=== PATIENT | male | born 1940 | race Caucasian/White ===

== ENCOUNTER 2016-05-15 16:44 | Inpatient (IN) | payer OTHER ==
--- NOTE | 2016-05-15 17:44 | ED EKG INTERP ---
EKG Interpretation - EKG Time of EKG reading by physician:: 17:11 EKG Read and Signed by:: Sofía Flores EKG Interpretation (*Must complete 3 of following elements*): Abnormal (ST and T wave abnormality consider r2qbuwjgn ischemia) Rate: 102 Rhythm: wewa [place]: normal QRS: normal Attestation - Scribe Verification/Attestation Scribe:: Tari Prado Acting as Scribe for:: Sofía Flores Scribe documention review:: This chart was documented by a scribe and accurately reflects the service the provider performed and the decisions made by the provider. Physician Attestation - Physician Attestation I, the provider, attest to the following statement:: Sofía Flores Physician documentation Attestation:: This documentation recorded by the scribe accurately reflects the service I personally performed and the decisions made by me.
[2016-05-15] MEDS ORDERED: M.V.I.-12 10 ML, FOLIC ACID 1 MG, MAGNESIUM SULFATE 1 GM, THIAMINE 100 MG in NS 1,000 ML IV ONE (18:27)
[2016-05-15] MEDS ORDERED: DUONEB (A & A) INH ONE (18:27)
--- NOTE | 2016-05-15 18:33 | PROVIDER DOCUMENTATION ---
HPI-General Adult - General Chief Complaint: Weakness Stated Complaint: Lung CA, Not eating or drinking,Weak Time Seen by Provider: 05/15/16 18:16 Source: patient, family Allergies/Adverse Reactions: Patient Allergies Allergy/AdvReac Type Severity Reaction Status Date / Time codeine Allergy Severe NAUSEA/VOMI Verified 05/15/16 18:36 TING hydrocodone bitartrate * Allergy Severe NAUSEA/VOMI Verified 05/15/16 18:36 [From Lortab] TING Home Medications: Home Medication List Medication Instructions Recorded Confirmed Last Taken Type Levothyroxine [Synthroid] 15 mcg PO DAILY 04/14/13 05/15/16 05/05/13 History 100 Cyproheptadine [Periactin] 4 mg PO TID 05/15/16 05/15/16 Unknown History - History of Present Illness -Gen Adult Nature of Presenting Problems: 75 y/o M presents to the ED with weakness and loss of appetite for 2 weeks. Pt is a Lung cancer pt with a port. Family states the port has not been accessed in 6 months. Pt is bed ridden and states his port appears to be out. Location of Pain/Injury: reports: lower body, generalized Quality of Pain: reports: aching Severity: reports: severe Onset/Duration: reports: other (2 weeks) Timing: reports: still present, getting worse Similar Symptoms Previously?: No Recently seen or treated by another doctor?: Yes Review of Systems - Adult - REVIEW OF SYSTEMS - ADULT Constitutional: denies: chills, fever Eyes: reports: no symptoms reported Ears, Nose, Mouth & Throat: reports: no symptoms reported Cardiovascular: reports: no symptoms reported Respiratory: reports: shortness of breath. denies: cough, wheezing Gastrointestinal: denies: abdominal pain, nausea, vomiting Genitourinary: reports: no symptoms reported Musculoskeletal: reports: muscle weakness Integumentary: reports: no symptoms reported Neurological: reports: no symptoms reported Psychiatric: reports: no symptoms reported Endocrine: reports: no symptoms reported Hematologic/Lymphatic: reports: no symptoms reported Allergic/Immunologic: reports: no symptoms reported All Other Systems: Reviewed and Negative Past History - Adult - PAST MEDICAL HISTORY-ADULT Review of Records: reports: Old Records Reviewed, Nursing Assessment Review, Medications Reviewed Cardiovascular: reports: HTN Musculoskeletal: reports: cancer (lung ) Endocrine/Immune: reports: thyroid disorder - IMMUNIZATION STATUS Childhood Immunizations: See Nurse Assessment Flu Vaccine: See Nurse Assessment Physical Exam-General - CONSTITUTIONAL General Appearance: appears well (Ill in apperance), alert, thin - EYES Eyes: PERRL/EOMI, pink conjunctivae - HEAD, EARS, NOSE, MOUTH & THROAT HENMT: negative: moist mucous membranes (Dry membrance), normal ENT inspection - NECK Neck: full range of motion, supple - RESPIRATORY Respiratory: decreased breath sounds (in all lung jeffrey). negative: normal breath sounds - CARDIOVASCULAR Cardiovascular: normal peripheral pulses, tachycardia. negative: regular rate, rhythm - GASTROINTESTINAL (ABDOMEN) Abdominal Exam: soft, no organomegaly, no pulsatile mass - MUSCULOSKELETAL Back Exam: no CVA tenderness, no vertebral tenderness Extremity: other (No strenght in lower extremities). negative: normal range of motion, normal inspection - SKIN Integumentary: normal color, warm/dry. negative: normal turgor - NEUROLOGIC Neurologic: grossly normal, no motor/sensory deficits - PSYCHIATRIC Psych/Mental Status: normal mood/affect, normal thought content, normal thought process, oriented x 3 Progress - PLAN OF CARE/RESULTS Progress/Plan/Lab Results: Orders Category Date Time Status Saline Loc NOW Care 05/15/16 18:16 Active CHEST-PORTABLE [RAD] Stat Exams 05/15/16 18:16 Taken BLOOD CULTURE [BLDCUL] Stat Lab 05/15/16 18:30 Results CBC WITH DIFF [HEME] Stat Lab 05/15/16 17:47 Completed COMPREHENSIVE METABOLIC PANEL [CHEM] Stat Lab 05/15/16 17:47 Completed LACTATE, PLASMA [CHEM] Stat Lab 05/15/16 18:35 Ordered PRO B-NATRIURETIC PEPTIDE Stat Lab 05/15/16 17:47 Completed Albuterol 2.5MG/Ipratrop 0.5MG [Duoneb (A & A)] Med 05/15/16 18:27 Discontinued 3 ml INH NOW ONE Mvi [M.v.i.-12] 10 ml Med 05/15/16 18:27 Active Folic Acid 1 mg Magnesium Sulfate 1 gm Thiamine 100 mg 0.9% Sodium Chloride Inj [Ns] 1,000 ml IV NOW Aerosol Treatments Routine Oth 05/15/16 18:28 Completed Aerosol Treatments Stat Oth 05/15/16 18:28 Completed Pulse Oximetry Stat Oth 05/15/16 18:16 Completed Vital Signs Temp Pulse Resp BP Pulse Ox 03/08/17 18:43 96 H 18 05/15/16 16:44 97.8 F 106 H 13 156/69 97 codeine Allergy (Severe, Verified 05/15/16 18:36) NAUSEA/VOMITING hydrocodone bitartrate * [From Lortab] Allergy (Severe, Verified 05/15/16 18:36) NAUSEA/VOMITING Levothyroxine [Synthroid] 15 mcg PO DAILY 04/14/13 Cyproheptadine [Periactin] 4 mg PO TID 05/15/16 Laboratory 05/15/16 05/15/16 05/15/16 17:47 17:47 17:47 WBC 9.37 RBC 3.08 L Hgb 8.0 L Hct 24.7 L MCV 80.2 L MCH 26.0 L MCHC 32.4 L RDW Std Deviation 16.0 H Plt Count 391 MPV 9.0 Immature Gran % (Auto) 0.3 Neut % (Auto) 89.1 H Lymph % (Auto) 6.7 L Pike % (Auto) 3.7 Eos % (Auto) 0.0 Baso % (Auto) 0.2 Immature Gran # (Auto) 0.03 Neut # (Auto) 8.34 H Lymph # (Auto) 0.63 L Pike # (Auto) 0.35 Eos # (Auto) 0.00 Baso # (Auto) 0.02 Sodium 126 L Potassium 3.2 L Chloride 87 L Carbon Dioxide 22 L Anion Gap 17 BUN 8 Creatinine 0.5 L Estimated GFR/1.73 m2 > 60 BUN/Creatinine Ratio 16 Glucose 97 Calculated Osmolality 252 Calcium 8.0 L Total Bilirubin 0.69 AST 11 ALT 12 Alkaline Phosphatase 212 H Fvz-C-Svnctyiyvew Pept 2036 H Total Protein 5.9 L Albumin 2.6 L Globulin 3.3 Albumin/Globulin Ratio 0.8 - XRAY 1 XRAY Study: Chest Impression: Abnormal (COPD changes, Rt lung mets) XRAY Interpretation: Read by Dr Guthrie - CONSULTS/PCP/HOSPITALIST Notification #1 *Consult/PCP/Hospitalist*: Dr Rodriguez (Hospitalist) Time Discussed: 19:21 Reason/Comments: Admission Consult Disposition: Admit (Accepts) Departure - Departure Time of Disposition Order: 19:20 DIAGNOSIS: Weakness, Hyponatremia Lung cancer Qualifiers: Laterality: right Lung location: unspecified part of lung Qualified Code(s): C34.91 - Malignant neoplasm of unspecified part of right bronchus or lung Disposition: HOME 01 Certified Medical Emergency: Emergent Condition: Stable Referrals: Cecilia Butts MD [Primary Care Provider] - Attestation - Scribe Verification/Attestation Scribe:: Gold Alonso Acting as Scribe for:: Tai Guthrie Scribe documention review:: This chart was documented by a scribe and accurately reflects the service the provider performed and the decisions made by the provider.
[2016-05-15 18:38] LABS: BASO% 0.2 % (0.0-0.8); HEMATOCRIT 24.7 % (42.0-52.0); IMM GRAN# 0.03 X1000 (0.0-0.04); IMM GRAN% 0.3 % (0.0-0.5); LYMPH# 0.63 X1000 (1.2-3.4); LYMPH% 6.7 % (20.5-51.1); MANUAL DIFF NEEDED? NO; MCHC 32.4 g/dL (33-37); MCV 80.2 FL (81-99); MONO# 0.35 X1000 (0.11-0.59); MONO% 3.7 % (1.7-9.3); NEUT% 89.1 % (42.2-75.2); PLT 391 X1000 (130-400); RBC 3.08 XMIL (4.7-6.1)
[2016-05-15 19:06] LABS: AGAP 17; ALBUMIN 2.6 g/dL (3.5-5.0); ALKALINE PHOSPHATASE 212 U/L (32-122); BUN 8 mg/dL (8-22); CHLORIDE 87 mmol/L (98-107); COSMO 252; GOT 11 U/L (10-34); GPT 12 U/L (10-44); POTASSIUM 3.2 mmol/L (3.5-5.1); SODIUM 126 mmol/L (136-145); TCO2 22 mmol/L (25-35); TOTAL BILIRUBIN 0.69 mg/dL (0.20-1.00); TOTAL PROTEIN 5.9 g/dL (6.3-8.3)
[2016-05-15] MEDS ORDERED: ZOFRAN IV PRN (19:39)
[2016-05-15] MEDS ORDERED: MORPHINE IV PRN (19:39)
[2016-05-15] MEDS ORDERED: ROCEPHIN 1 GM/NS 50 ML IV ONE (19:41)
[2016-05-15] MEDS: DUONEB (A & A) INH SCH (23:43)
[2016-05-15] MEDS: NS 1,000 ML IV SCH (23:51)
--- NOTE | 2016-05-16 00:55 | HISTORY AND PHYSICAL ---
CHIEF COMPLAINT: Weakness and not being able to get up and around. HISTORY OF PRESENT ILLNESS: He came into the ER for evaluation. He has had some nausea, vomiting, poor p.o. intake for the last several days. Workup in the ER revealed normal vitals. However, his hemoglobin and hematocrit have dropped significantly, 8 and 24. Chemistries: Sodium is down to 126 although he has been hypernatremic, potassium 3.2. He was admitted for further management. There was also some concern over early urinary tract infection. Patient denies any eddie abdominal pain. PAST MEDICAL HISTORY: 1. 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 2. Hypertension. 3. Dyslipidemia. 4. Peripheral vascular disease. 5. Hypothyroidism. 6. GERD. PAST SURGICAL HISTORY: Thyroidectomy. SOCIAL HISTORY: No tobacco or ethanol. FAMILY HISTORY: Reviewed and noncontributory. ALLERGIES: No known drug allergies. MEDICATIONS: He is on Synthroid and Periactin alone. REVIEW OF SYSTEMS: Otherwise negative. PHYSICAL EXAMINATION: VITAL SIGNS: Blood pressure 156/69, heart rate of 106, respiratory rate 13, temperature 97.8 degrees. GENERAL: A thin male, cachectic, in no acute distress. He has some mild discomfort in his abdomen. HEENT: Pupils equal, round, reactive to light. Extraocular movements were intact. NECK: Supple. CARDIOVASCULAR: Regular rate and rhythm. No murmurs, gallops, or rubs. PULMONARY: Bilateral breath sounds. Clear to auscultation. GASTROINTESTINAL: Soft, nontender, nondistended. Bowel sounds are positive. LABORATORY DATA: Sodium 126, potassium 3.2. Hemoglobin and hematocrit were 8 and 24 which was dropped from in February. It was 11 and 31 with a low MCV. Urine showed too numerous to count white blood cells, less than 10 epithelial cells, 4+ bacteria, no nitrites. PROBLEM LIST: 1. Generalized weakness, failure to thrive. Possible UTI versus metabolic encephalopathy; We will continue hydration and follow closely. 2. Hyponatremia, hypokalemia. We will continue to monitor and supplement accordingly. 3. Urinary tract infection. Continue empiric antibiotics and follow up on urine culture. 4. Microcytic anemia. We will rule out GI bleed and follow iron levels. Continue to follow very closely. [facility]
[2016-05-16] MEDS: DUONEB (A & A) INH SCH ×6 (03:53→23:07)
[2016-05-16] MEDS ORDERED: NS 500 ML IV ONE (04:36)
[2016-05-16] MEDS ORDERED: LOPRESSOR IV ONE (04:36)
--- NOTE | 2016-05-16 05:15 | EKG Report ---
Test Performed on : 05/16/2016 04:43:40 AM Test Reason : Tachycardia Blood Pressure : / mmHG Vent. Rate : 132 BPM Atrial Rate : 132 BPM P-R Int : 176 ms QRS Dur : 076 ms QT Int : 378 ms P-R-T Axes : 056 011 097 degrees QTc Int : [address] & T wave abnormality, consider lateral ischemia Abnormal ECG When compared with ECG of 15-MAY-2016 17:11, (Unconfirmed) ST now depressed in Lateral leads Inverted T waves have replaced nonspecific T wave abnormality in Lateral leads Confirmed by Juany VELASCO, Aveilno Hodges ([id number]) on 05/16/2016 9:31:25 AM
--- NOTE | 2016-05-16 05:39 | EKG Report ---
Test Performed on : 05/15/2016 5:11:33 PM Test Reason : No Order in [employer] Blood Pressure : / mmHG Vent. Rate : 102 BPM Atrial Rate : 102 BPM P-R Int : 164 ms QRS Dur : 078 ms QT Int : 348 ms P-R-T Axes : 023 019 061 degrees QTc Int : [address] & T wave abnormality, consider inferior ischemia Abnormal ECG When compared with ECG of 07-MAY-2013 07:48, Inverted T waves have replaced nonspecific T wave abnormality in Anterior leads Unconfirmed Result
[2016-05-16] MEDS: PRILOSEC PO SCH (06:42)
[2016-05-16 07:21] LABS: HEMATOCRIT 22.9 % (42.0-52.0); HEMOGLOBIN 7.4 g/dL (14.0-18.0); MCH 26.5 PG (27-31); MCHC 32.3 g/dL (33-37); MCV 82.1 FL (81-99); MPV 8.8 FL (7.4-10.4); RBC 2.79 XMIL (4.7-6.1)
--- NOTE | 2016-05-16 07:47 | Diag Imaging Result Document ---
PROCEDURE NAME: CHEST-PORTABLE - 05/15/2016 PORTABLE CHEST X-RAY: COMPARISON: 02/14/2016. FINDINGS: Stable right chest port in good position. Stable scarring in the right mid lung. Heart size and pulmonary vascularity is normal. No definite infiltrates. IMPRESSION: Pulmonary scarring but no acute disease.
[2016-05-16 08:00] LABS: AGAP 16; BUN 9 mg/dL (8-22); CALCIUM 7.8 mg/dL (8.8-10.2); CHLORIDE 92 mmol/L (98-107); COSMO 257; IRON SATURATION 13 %; MAGNESIUM 1.9 mg/dL (1.5-2.7); SODIUM 129 mmol/L (136-145); TCO2 21 mmol/L (25-35); TIBC 94 ug/dL; TOTAL IRON 12 ug/dL (53-167); UNBOUND IRON 82 ug/dL (112-346)
[2016-05-16 08:01] LABS: POTASSIUM 2.5 mmol/L (3.5-5.1)
[2016-05-16] MEDS ORDERED: SYNTHROID PO SCH (09:00)
[2016-05-16] MEDS: TYLENOL PO PRN (10:16)
[2016-05-16] MEDS: PERIACTIN PO SCH ×3 (11:35→17:14)
[2016-05-16] MEDS: POTASSIUM CHLORIDE 20 MEQ/SWI 100 ML IV SCH ×4 (11:36→20:50)
[2016-05-16] MEDS: NS 1,000 ML IV SCH ×2 (14:02→18:09)
[2016-05-16 16:34] LABS: AGAP 15; BUN 10 mg/dL (8-22); CALCIUM 7.5 mg/dL (8.8-10.2); CHLORIDE 94 mmol/L (98-107); COSMO 259; POTASSIUM 2.9 mmol/L (3.5-5.1); SODIUM 129 mmol/L (136-145); TCO2 20 mmol/L (25-35)
[2016-05-16] MEDS ORDERED: ROCEPHIN 1 GM/NS 50 ML IV SCH (21:00)
--- NOTE | 2016-05-16 22:54 | CONSULTATION ---
DATE OF CONSULTATION: 05/16/2016 REASON FOR CONSULTATION: Malfunctioning [id number]-Hmgefhht. HISTORY OF PRESENT ILLNESS: This is a 75-year-old male with metastatic squamous cell lung cancer who has an indwelling Port-A-Cath for many years. He was admitted recently with complaints of weakness, poor p.o. intake, nausea and vomiting. He has been found to be quite anemic and his port has become completely exposed with skin breakdown over it. PAST MEDICAL HISTORY: Metastatic squamous cell cancer of the lung. Hypertension. Peripheral vascular disease. Dyslipidemia. Hypothyroidism. GERD. PAST SURGICAL HISTORY: Thyroidectomy. Port placement. SOCIAL HISTORY: He denies tobacco or alcohol. FAMILY HISTORY: Reviewed and noncontributory. ALLERGIES: No known drug allergies. HOME MEDICATIONS: Synthroid. Periactin. REVIEW OF SYSTEMS: Ten systems reviewed and negative except as noted above. PHYSICAL EXAMINATION: Vital Signs: Temperature 97.3 degrees, pulse 85, respirations 19, blood pressure 96/48. General: Elderly, chronically ill-appearing male who is quite frail appearing. He is alert. He follows commands. He seems to have some confusion and forgetfulness. General: He is an elderly frail-appearing male in no acute distress. He is somewhat forgetful or confused. CARDIOVASCULAR: Regular rate and rhythm. Respiratory: Bilateral equal breath sounds. Gastrointestinal: Soft, nontender. No obvious organomegaly. Skin: He has a right chest Port- A-Catheter and the port itself is completely exposed. The skin is broken down around the port. There does not appear to be any surrounding erythema or drainage around it. LABORATORY: White blood cell count 15,000, hemoglobin 7.4, hematocrit 22.9, platelet count 326,000. Sodium 129, potassium 2.9, chloride 94, CO2 20, BUN 10, creatinine 0.5. ASSESSMENT AND PLAN: A 75-year-old male with metastatic lung cancer and now has an exposed port. Due to significant risk of life-threatening infection, this Kfle-X-Qiymnizn needs to be removed. We will plan to do this in the operating room tomorrow I discussed the risks, benefits, and alternatives with him. He understands and agrees to proceed.
[2016-05-17] MEDS: DUONEB (A & A) INH SCH ×6 (02:53→23:21)
[2016-05-17 07:30] LABS: BASO% 0.1 % (0.0-0.8); EOS# 0.04 X1000 (0.0-0.7); EOS% 0.4 % (0.0-10.0); HEMATOCRIT 21.9 % (42.0-52.0); IMM GRAN# 0.04 X1000 (0.0-0.04); IMM GRAN% 0.4 % (0.0-0.5); LYMPH# 0.82 X1000 (1.2-3.4); LYMPH% 7.6 % (20.5-51.1); MANUAL DIFF NEEDED? YES; MCV 81.4 FL (81-99); MONO# 0.32 X1000 (0.11-0.59); MPV 8.8 FL (7.4-10.4); NEUT% 88.5 % (42.2-75.2); PLT 286 X1000 (130-400); RBC 2.69 XMIL (4.7-6.1)
[2016-05-17 08:15] LABS: AGAP 10; BUN 10 mg/dL (8-22); CALCIUM 7.6 mg/dL (8.8-10.2); CHLORIDE 98 mmol/L (98-107); COSMO 262; MAGNESIUM 2.2 mg/dL (1.5-2.7); POTASSIUM 3.7 mmol/L (3.5-5.1); SODIUM 132 mmol/L (136-145); TCO2 24 mmol/L (25-35)
[2016-05-17 08:21] LABS: BANDS 1 % (0-1); LYMPHS 4 % (21-51); MONO 2 % (1-9)
[2016-05-17] MEDS: PRILOSEC PO SCH (09:21)
[2016-05-17] MEDS: PERIACTIN PO SCH ×3 (09:21→16:45)
[2016-05-17] MEDS: NS 1,000 ML IV SCH ×2 (09:30→16:45)
[2016-05-17] MEDS ORDERED: MARCAINE 0.25% PF/EPI 1:200,000 ONE (10:19)
[2016-05-17] MEDS ORDERED: XYLOCAINE 1%/EPI 1:100,000 ONE (10:35)
[2016-05-17] MEDS ORDERED: DIPRIVAN 1% ONE (11:27)
[2016-05-17] MEDS ORDERED: LR 1,000 ML ONE (11:56)
[2016-05-17] MEDS ORDERED: EXTENSION SET 32 IN 4522 ONE (11:57)
[2016-05-17] MEDS ORDERED: ANESTHESIA PB SET 88 IN 5742 ONE (11:57)
[2016-05-17] MEDS: TYLENOL PO PRN (12:46)
--- NOTE | 2016-05-17 14:45 | OPERATIVE NOTE ---
PROCEDURE DATE : 05/17/2016 PREOPERATIVE DIAGNOSES: 1. Metastatic squamous cell cancer of the lung. 2. Port malfunction. POSTOPERATIVE DIAGNOSES: 1. Metastatic squamous cell cancer of the lung. 2. Port malfunction. PROCEDURE: Excision of port. SURGEON: Jerry Martinez MD ANESTHESIA: Local with monitored anesthesia care. ESTIMATED BLOOD LOSS: Two milliliters. COMPLICATIONS: None apparent. TECHNIQUE: The patient was brought to the operating room and placed supine on the table. He was prepped and draped in usual sterile fashion. One percent lidocaine with epinephrine was used to anesthetize the skin and subcutaneous tissues around the port. An incision was made around the port with a 15 blade including a rim of skin on the edges of the exposed port. The port was then excised from its fibrous capsule sharply with the scissors, removing the old Prolene sutures with it. After the port and catheter were completely removed, the catheter track was then closed in a figure-of-8 3-0 Vicryl. The skin was closed with interrupted subcuticular 3-0 Vicryl. Steri- Strips and an island dressing were placed. There were no apparent complications.
--- NOTE | 2016-05-17 14:47 | PALLIATIVE CARE CONSULTATION ---
DATE: 05/17/2016 REQUESTING PHYSICIANS: Dr. Butts REASON FOR CONSULTATION: Goals of care. HISTORY OF PRESENT ILLNESS: This is a 75-year-old male with a past medical history of metastatic squamous cell cancer of the lung, hypertension, dyslipidemia, peripheral vascular disease, hypothyroidism and gastroesophageal reflux disease. He was most recently admitted on 05/15/2016 after presenting to the ER with complaints of nausea, vomiting, poor p.o. intake and weakness. Mr. Wagner's and granddaughter are at the bedside and state that he has become progressively weak over the last 2 months. They state that in January 2016 Mr. Wagner was able to ambulate with assistance and now he is completely bedbound. Mr. Wagner states that he has had a 40-pound weight loss over the last 6 months. He states that he does not have an appetite. The family states that he has not had anything to eat in the last 4 days. It is of note that Dr. Harvey was following this patient for his lung cancer however Ms. Wagner states that Mr. Wagner stopped attending those appointments back in February 2016. The palliative care team has been consulted to assist with goals of care. REVIEW OF SYSTEMS: Twelve-point review of system has been conducted and otherwise negative except those mentioned in the HPI. PAST MEDICAL HISTORY: See HPI. PAST SURGICAL HISTORY: 1. Thyroidectomy. 2. Port placement. SOCIAL HISTORY: Prior to this admission he lived at home with his . He has 1 son who is estranged and 2 grandchildren who are very attentive to his care. FAMILY HISTORY: None pertinent. PHYSICAL EXAM: General: This is a cachectic elderly male who does not appear to be in any acute distress. HEENT: Atraumatic, normocephalic. Neck: Trachea is midline. Cardiovascular: Regular rate and rhythm. Pulmonary: Lung sounds are clear. Respirations are nonlabored. Abdomen: Soft. Bowel sounds are active. Extremities: Pulses are palpable. Skin: Warm and dry. IMPRESSION: This is a 75-year-old male with a past medical history as listed above in the history of present illness. I met with Mr. Wagner, his and granddaughter discussed his goals of care. Mr. Wagner's family states they would like to take him home to the granddaughter's house with hospice services. The patient states that he is agreeable to hospice services and that he feels like he does not have much longer left to live. However he is not willing to live with his family as he feels like he would be a burden to them. The is interested in long-term care placement, specifically at a [facility]. She states that she has spoken with a in store marketing representative of the [facility] but has not been told if a bed is available at this time. Currently Mr. Wagner does not complain of dyspnea, pain, nausea, anxiety or depression. We spoke about advanced directive and power of admitted attorneys. Mr. Wagner is a DNR level 1. He does not have a power of admitted attorneys but states that his would make any decisions if he was unable to make those for himself. The family had questions regarding home hospice services and those questions were answered. I do believe plan is for Mr. Wagner to go down to have his port removed today. The palliative care team will continue to follow until discharge. It does appear that Mr. Wagner's palliative performance scale is 20%. Thank you for this consultation. Dictated by ELIZABETH Beasley for Arian Bernal MD
[2016-05-17] MEDS ORDERED: SYNTHROID PO ONE (14:55)
[2016-05-18] MEDS: NS 1,000 ML IV SCH ×3 (02:59→23:07)
[2016-05-18] MEDS: DUONEB (A & A) INH SCH ×6 (03:39→23:33)
[2016-05-18] MEDS: SYNTHROID PO SCH (06:09)
[2016-05-18] MEDS: PRILOSEC PO SCH (06:09)
[2016-05-18 07:12] LABS: MANUAL DIFF NEEDED? NO
[2016-05-18 07:37] LABS: BASO% 0.3 % (0.0-0.8); EOS# 0.04 X1000 (0.0-0.7); EOS% 0.5 % (0.0-10.0); HEMATOCRIT 20.8 % (42.0-52.0); HEMOGLOBIN 6.5 g/dL (14.0-18.0); IMM GRAN# 0.03 X1000 (0.0-0.04); IMM GRAN% 0.4 % (0.0-0.5); LYMPH# 1.05 X1000 (1.2-3.4); LYMPH% 13.3 % (20.5-51.1); MCHC 31.3 g/dL (33-37); MCV 83.2 FL (81-99); MONO# 0.36 X1000 (0.11-0.59); MONO% 4.6 % (1.7-9.3); MPV 9.4 FL (7.4-10.4); NEUT% 80.9 % (42.2-75.2); PLT 209 X1000 (130-400)
[2016-05-18] MEDS: PERIACTIN PO SCH ×3 (10:12→17:38)
[2016-05-19] MEDS: DUONEB (A & A) INH SCH ×2 (03:46→08:11)
[2016-05-19] MEDS: PRILOSEC PO SCH (06:01)
[2016-05-19] MEDS: SYNTHROID PO SCH (06:02)
[2016-05-19 07:38] VITALS: BP 136/69
[2016-05-19] MEDS: PERIACTIN PO SCH (08:55)
[2016-05-19] MEDS: NS 1,000 ML IV SCH (08:55)
--- NOTE | 2016-05-25 15:39 | DISCHARGE SUMMARY ---
ADMISSION DATE: 05/15/2016 DISCHARGE DATE: 05/19/2016 DATE OF ADMISSION: 05/15/2016. DATE OF DISCHARGE: 05/19/2016. DISCHARGE DIAGNOSES: 1. Hyponatremia, improved. 2. Altered mental status, improved. 3. Hypokalemia, resolved. 4. Known metastatic squamous cell cancer of the lung. 5. Hypertension. 6. Dyslipidemia. Nausea vomiting. 1. Two volume depletion. CONSULTATIONS: None. PROCEDURES: None. BRIEF HOSPITAL COURSE: Patient is a 75-year-old male, who presented to the emergency department, as noted on the History of Present Illness. He was treated in the usual fashion. Thankfully, he had an uneventful hospital course. On discharge, he was feeling better. He was awake, alert. He had much less withdrawal symptoms. His sodium and potassium had improved. DISPOSITION: Patient will continue to follow outpatient with Dr. Butts and with regarding his chronic state of affairs. MEDICATIONS: No changes made on his current medications.
== END 2016-05-19 16:22 | disposition hospice, home (50) | DRG 641 ==
LOC: EDBD → ED 16:44 → 3N 21:00
PROVIDERS: ADMIT Internal Medicine; ATTEND Internal Medicine
PROC: 0JPT0XZ Removal of Tunneled Vascular Access Device from Trunk Subcutaneous Tissue and Fascia, Open Approach (ICD-10-PCS; principal; 2016-05-17 10:52)
DX: E87.1 Hypo-osmolality and hyponatremia (principal); E86.9 Volume depletion, unspecified; R64 Cachexia; C79.9 Secondary malignant neoplasm of unspecified site; T82.898A Other specified complication of vascular prosthetic devices, implants and grafts, initial encounter; E46 Unspecified protein-calorie malnutrition; C34.91 Malignant neoplasm of unspecified part of right bronchus or lung; Z68.1 Body mass index [BMI] 19.9 or less, adult; E87.6 Hypokalemia; I10 Essential (primary) hypertension; Z66 Do not resuscitate; Z74.01 Bed confinement status; E78.5 Hyperlipidemia, unspecified; I73.9 Peripheral vascular disease, unspecified; K21.9 Gastro-esophageal reflux disease without esophagitis; E89.0 Postprocedural hypothyroidism; R62.7 Adult failure to thrive; D50.9 Iron deficiency anemia, unspecified; Z79.899 Other long term (current) drug therapy
CPT/HCPCS: 36415; 71010; 80048; 80053; 82272; 82728; 82948; 83540; 83550; 83605; 83735; 83880; 84100; 85025; 85027; 87040; 87077; 87088; 87186; 93005; 93010; 94640; 94761; 96365; 96366; 96368; J0696; J3411; J3475; J3480; J7030; J7040; J7120